=== PATIENT | male | born 1960 | race Caucasian/White ===

== ENCOUNTER 2017-02-17 10:46 | Inpatient (IN) | payer OTHER ==
[~2017-02-17] VITALS: Ht 180.3 cm; Wt 88.8 kg
--- NOTE | ~2017-02-17 | OR ---
Unit #: [id number] #: [id number] Patient: PAYAM LUNA [id number] [address] [place], [place] [address] [id number] MR#: [id number] NAME: PAYAM LUNA. ROOM: Replaced by [facility] Date of Procedure: 02/18/2017 Admission Date: 02/17/2017 Surgeon: Bin Fields M.D. : 1960 Attending Physician: Louann Torres M.D. Primary Care Physician: Jesus Caal M.D. OPERATIVE REPORT PROCEDURES PERFORMED Esophagogastroduodenoscopy with biopsy, esophagogastroduodenoscopy with variceal banding, and colonoscopy to cecum. INDICATIONS FOR PROCEDURE The patient presented with significant blood in the stool, anemia of acute blood loss, history of liver cirrhosis, undergoing evaluation with upper endoscopy and colonoscopy. MEDICATIONS Monitored anesthesia. POSTOPERATIVE FINDINGS 1. Grade 3 esophageal varices. Five bands were placed. 2. Diffuse gastropathy. Biopsies were taken in the antrum. 3. Early gastric varices. 4. Normal colonic mucosa, but for mucosal swelling. 5. Very large rectal varices most likely the cause of bleeding in this case. PLAN We will consider TIPS procedure to decrease the risk of future bleeding. We will continue with Sandostatin for now. DESCRIPTION OF PROCEDURE The patient was explained of the procedure, risks, and benefits along with the risks and benefits of anesthesia. He was brought to the endoscopy room. Propofol anesthesia was given. Bite block was placed. The scope was passed down the mouth into esophagus, stomach, duodenum, and distal duodenum. Findings as described. Biopsies were taken in the antrum. Five bands were placed also in the esophagus. Gently, the scope was pulled out. He tolerated it well. At this time, we turned him around and repositioned for colonoscopy. Large internal hemorrhoids were noted. The scope was lubricated passed up the rectum, advanced under direct vision all the way to the cecum. Cecum was identified by ileocecal valve and appendiceal orifice. I then started to pull the scope out carefully looking. No polyps or masses seen. Mucosa shows lot of edema. I retroflexed in the rectum, very large internal hemorrhoids and rectal varices noted. Gently, the scope was pulled out. He tolerated it well. No major complications were seen. Unit #: [id number] #: [id number] Patient: PAYAM LUNA Dictated by... Zoltan Garner/mike TD: 02/18/2017 15:57 JOB #: [id number] OPERATIVE REPORT Page 1 of 1 X Bin Fields MD PROCEDURE OPERATIVE NOTE
--- NOTE | ~2017-02-17 | CT2 ---
[facility] A Service of [facility] RADIOLOGY TEXT RESULTS PATIENT: PAYAM LUNA LOCATION: [facility] : 56 UNIT #: [id number] AGE: [address]: Diaz Pina MD SEX: M ORDER DR: [id number] [facility] [address] [place], [place] [address] [id number] MR#: [id number] Acc #: [id number] NAME: PAYAM LUNA : 1960 SEX: M STUDY DATE/TIME: 02/17/2017 12:34 UNIT: [facility] ROOM: STUDY DESCRIPTION: CT Abd and Pelv W Cont Attending Physician: Diaz Pina M.D. Ordering Physician: Diaz Pina M.D. Primary Care Physician: Jesus Caal M.D. MEDICAL IMAGING REPORT This report is preliminary unless electronic signature is present EXAM CT abdomen and pelvis with contrast 02/17/2017 1234 hours HISTORY 56-year-old man with right lower quadrant pain with blood in stools for 2-[address] abdomen 07/18/[address] images were obtained from the lung bases through the pubic symphysis with intravenous contrast. Sagittal and coronal reconstructions were performed. Contrast was Isovue-370 100 mL IV. Total exam DLP 684 mGy-cm. This CT exam was performed with one or more of the following radiation dose reduction techniques: automatic control, adjustment of mA and/or kV according to patient size, and iterative reconstruction. FINDINGS Images through the lung bases demonstrate minimal dependent linear density consistent with scar unchanged. There is no pleural effusion. There is slight thickening of the wall of the distal esophagus at the GE junction. No enhancement is seen. Varices, however, are suspected given the degree of collateral vessels seen elsewhere in the upper abdomen. There is a cirrhotic morphology to the liver without focal liver lesions seen. There is splenomegaly increased from prior study with numerous collateral vessels in the upper abdomen and ascites. Collateral vessels and ascites are clearly increased since 07/18/2015. The spleen currently measures 18.0 x 12.9 x 18.0 cm. It previously measured 17.2 x 12.1 x 17.6 cm. [facility] A Service of [facility] RADIOLOGY TEXT RESULTS PATIENT: PAYAM LUNA LOCATION: [facility] : 56 UNIT #: [id number] AGE: [address]: Diaz Pina MD SEX: M ORDER DR: There are clips consistent with cholecystectomy. No acute pancreatic lesion is seen. There is no bile duct dilatation. The adrenal glands are normal. Collateral vessels are seen extending anterior and inferior to the spleen towards the left upper quadrant towards the pericolic gutter and descending lateral and medial to the kidney. There is a splenorenal shunt. Stomach is contracted and unopacified but appears normal. There is no small bowel distension or small bowel wall thickening. I see no evidence of appendicitis. The colon is nondistended. No definite wall thickening is seen. The wall in the sigmoid colon appears mildly prominent, however it is surrounded by ascites which can yield the appearance of a thickened wall. Given the history of bleeding consider a follow up colonoscopy if not recently performed. There are serpiginous enhancing vessels to the left and anterior to the upper rectum with vessels appearing to enhance in the wall of the rectum (image 98 series 2. This is possibly the source of the patient's bleeding. IMPRESSION 1. Cirrhotic morphology to the liver with interval progression of portal hypertension with increasing splenomegaly and increasing ascites. Numerous collateral vessels are seen around the spleen, the gastrohepatic ligament and likely varices at the distal esophagus. 2. No focal liver lesion. The gallbladder is absent. 3. No renal or adrenal lesion. 4. There is a segment of sigmoid colon where wall thickening cannot be excluded. This loop is surrounded by ascitic fluid which can often give the appearance of wall thickening. Suggest correlation with colonoscopy if not recently performed. 5. CT pelvis demonstrates multiple serpiginous enhancing vessels around the rectum with enhancing area in the anterolateral right rectal wall measuring up to 3 cm. This could be related to the presence of varices. A tumor mass could have this appearance as well. Given this proximity to the anus this is perhaps palpable. Suggest further evaluation with direct visualization. STAT * RESULT Dictated by... Bernarda Gutierrez M.D. THIS IS AN ELECTRONICALLY VERIFIED REPORT Bernarda Gutierrez M.D. at 02/17/2017 2:30 PM SMM/rnr TD: 02/17/2017 13:06 [facility] [email or web address]]. [facility] A Service of [facility] RADIOLOGY TEXT RESULTS PATIENT: PAYAM LUNA [id number] : 56 UNIT #: [id number] AGE: [address]: Diaz Pina MD SEX: M ORDER DR: JOB #: [id number] MEDICAL IMAGING REPORT Page 1 of 1 COPY
--- NOTE | ~2017-02-17 | DS ---
Unit #: [id number] #: [id number] Patient: PAYAM LUNA [id number] [address] [place], [place] [address] [id number] MR#: [id number] NAME: PAYAM LUNA ROOM: [facility] Age: 56 Sex: M Admission Date: 02/17/2017 : 1960 Discharge Date: 02/19/2017 Attending Physician: Louann Torres M.D. Primary Care Physician: Jesus Caal M.D. DISCHARGE SUMMARY PERTINENT HISTORY/HOSPITAL COURSE The patient is a 56-year-old man with a history significant for insulin dependent diabetes mellitus, portal hypertension and cirrhosis, who presents with symptoms of rectal bleeding. During his admission, the patient had a gastroenterology consultation and underwent esophagogastroduodenoscopy with biopsy and with variceal banding along with a colonoscopy up to the cecum. The patient had grade 3 esophageal varices and five bands were placed. Diffuse gastropathy and biopsies were taken in the antrum. Normal colonic mucosa. Large rectal varices. Following this, the patient had no further rectal bleeding. His hemoglobin was stable, his vitals were stable. The patient will be discharged home today. TIPS procedure is not available at this facility. Plan will be for the patient to follow up with gastroenterology with outpatient TIPS procedure at another facility. DISCHARGE MEDICATIONS 1. Lantus insulin 34 units subcu at bedtime. 2. Aspart insulin 10 units subcu before meals. 3. Protonix 40 mg p.o. once daily. DISCHARGE INSTRUCTIONS The patient is to follow up with gastroenterology as outpatient and consideration for outpatient TIPS procedure if necessary. Follow up with primary care physician. Dictated by... Zoltan Estrella TD: 02/19/2017 12:56 JOB #: [id number] Unit #: [id number] #: [id number] Patient: PAYAM LUNA DISCHARGE SUMMARY Page 1 of 1 X X DISCHARGE SUMMARY
--- NOTE | ~2017-02-17 | HP ---
Unit #: [id number] #: [id number] Patient: PAYAM LUNA [id number] [address] [facility], [place] [address] [id number] MR#: [id number] NAME: PAYAM LUNA ROOM: 334 Age: 56 Sex: M Admission Date: 02/17/2017 : 1960 Attending Physician: Regan Torres M.D. Primary Care Physician: Jesus Caal M.D. HISTORY AND PHYSICAL CHIEF COMPLAINT Rectal bleeding. HISTORY OF PRESENT ILLNESS The patient is a 56-year-old male, who has history of diabetes and hypertension, and portal hypertension, brought to the emergency room complaining of rectal bleeding. The patient stated that the rectal bleeding has been going on for the last two months and has been gradually worsening to the point that this morning the patient was noted the pouring of the blood with the clotted blood and that made him to come to the emergency room. The patient was seen by the primary care physician and then later to the emergency room for the above evaluation. The patient stated that he had an upper endoscopy back in 2013 with history of variceal banding for the esophageal varices. The patient also complains of dizziness and headache but denies any chest pain. He denies any nausea or vomiting. The patient is being admitted for the above reasons. PAST MEDICAL HISTORY 1. History of portal hypertension. 2. Esophageal varices. 3. Insulin dependent diabetes. 4. Hypertension. 5. Anemia. PAST SURGICAL HISTORY 1. Cholecystectomy. 2. Colonoscopy. 3. In the past rectal varices were noted. ALLERGIES None. HOME MEDICATIONS NovoLog and Levemir FAMILY HISTORY Coronary artery disease and kidney disease. SOCIAL HISTORY The patient lives with his . He is a lifelong nonsmoker. He states that he never drank alcohol heavily in the past and does not drink any alcohol currently. REVIEW OF SYSTEMS Unit #: [id number] #: [id number] Patient: PAYAM LUNA Positive for headache, positive for dizziness, positive for rectal bleeding, and denies any chest pain, denies any shortness of breath, denies any cough, and other systems have been reviewed and all other systems are negative. PHYSICAL EXAMINATION GENERAL: The patient is lying on the bed, not in acute distress. VITALS: Temperature 97.8, pulse rate 92, respiratory 16, and blood pressure 131/71, saturation is 98% at room air. HEENT: Head: Atraumatic and normocephalic. Pupils equal, round, reactive to light and accommodation. Positive for pallor. No atelectasis. Moist mucous membranes. LUNGS: Decreased air entry at the bases. HEART: Regular rate and rhythm. ABDOMEN: Soft, positive bowel sounds. EXTREMITIES: No cyanosis, no clubbing. NEURO: Alert, awake, oriented, no gross focal motor deficit. DIAGNOSTIC STUDIES LABORATORY DATA: Sodium 135, potassium 3.6, chloride 105, bicarb 25, glucose 273, BUN 11, creatinine 0.5, AST 38, ALT 29, alkaline phosphatase 128. Total bili 2.2, albumin 3, INR is 1.2. WBC 4.8, hemoglobin 10.4, hematocrit 30.5, platelets 52. Neutrophils 76%, lymphocytes 12%. IMAGING: CT of the abdomen and pelvis with contrast, shows cirrhotic morphology to the liver with interval progression of portal hypertension with increase in splenomegaly and increase in the fatty spleen, numerous collateral vessels are seen around the spleen that are gastrohepatic ligament and likely varices at the distal esophagus. No focal liver lesions. No renal or adrenal lesions. There is a segment of sigmoid colon where the wall thickening cannot be excluded. CT of the pelvic demonstrated multiple serpiginous enhancement which was around the rectum with enhancing area in the anterior lateral right rectal wall measuring up to 3 cm. This could be related to the presence of varices and glucose is 301. ASSESSMENT/PLAN 1. Rectal bleeding. 2. Diabetes. 3. Anemia. Plan to admit to observation. The patient will have a GI evaluation and continue with the Protonix and continue with the low dose sliding scale, Accu-Cheks and further recommendations to follow as more lab evaluations are available. Dictated by Zoltan Casey TD: 02/18/2017 08:37 JOB #: [id number] Unit #: [id number] #: [id number] Patient: PAYAM LUNA HISTORY AND PHYSICAL Page 1 of 1 X REGAN TORRES MD X HISTORY AND PHYSICAL
[~2017-02-17 10:46] MED LIST: CHRONULAC10 GM/15 M PO; INDERAL20 MG PO; IRON325 ( 651 PO; LANTUS100 U/M1 SQ; LANTUS100 U/ML; LANTUS100 UNITS/ SUBQ; NADOLOL20 MG PO; NORVASC; NOVOLIN R100 U/ML; NOVOLOG FL100 UNIT/1 SQ; NOVOLOG100 U/ML SUBQ; ROXICODONE5 M1 PO; VITAMIN D2000 UNIT PO
[2017-02-17 11:28] LABS: BASOPHIL% 0.6 % (0-2.5); EOSINOPHIL# 0.1 X10e3 (0-0.7); EOSINOPHIL% 2.7 % (0.0-7.0); HEMATOCRIT 30.5 % (38.0-50.0); HEMOGLOBIN 10.4 gm/dL (13.0-16.0); LYMPHOCYTE# 0.6 X10e3 (1.0-3.5); LYMPHOCYTE% 11.5 % (17.0-45.0); MEAN CELL VOLUME 87.8 FL (83-96); MEAN CORPUSCULAR HEMOGLOBIN 29.9 PG (28-34); MEAN CORPUSCULAR HGB CONC 34.1 g/dL (30-36); MEAN PLATELET VOLUME 9.5 FL (6.5-11.5); MONOCYTE# 0.5 X10e3 (0-1.0); MONOCYTE% 10.9 % (3.0-12.0); NEUTROPHIL# 3.6 X10e3 (1.5-7.1); NEUTROPHIL% 74.3 % (40-75); RED BLOOD COUNT 3.48 X10e (3.90-5.60); RED CELL DISTRIBUTION WIDTH 16.9 % (11.0-15.5); WHITE BLOOD COUNT 4.8 X10e3 (4.0-10.5)
[2017-02-17 11:45] LABS: BILIRUBIN, DIRECT 0.5 mg/dL (0.0-0.2); BILIRUBIN,INDIRECT 1.7 mg/dL (0.0-0.9); BILIRUBIN,TOTAL 2.2 mg/dL (0.2-2.0); CALCIUM SERUM 8.1 mg/dL (8.4-10.2); CREATININE SERUM 0.5 mg/dL (0.6-1.4); GLOM FILT RATE Estimated 119.5 mL/min (>60); POTASSIUM 3.6 mmol/L (3.5-5.1); PROTEIN TOTAL SERUM 6.7 g/dL (6.0-8.3)
[2017-02-17 11:46] LABS: INR 1.2; PROTHROMBIN TIME (PATIENT) 12.6 SECONDS (10.0-11.7)
[2017-02-17 11:50] LABS: DIFF IND YES
[2017-02-17 11:51] LABS: PLATELET COUNT 52 X10e3 (140-420)
[2017-02-17 12:01] LABS: ANISOCYTOSIS SL; MICROCYTOSIS SL; PLATELET ESTIMATE DECREASED (NORMAL)
[2017-02-17] MEDS ORDERED: LANTUS100 U/ML SUBQ (13:21)
[2017-02-17] MEDS ORDERED: NOVOLOG100 U/ML SUBQ (13:22)
[2017-02-18 05:18] LABS: HEMATOCRIT 30.6 % (38.0-50.0); HEMOGLOBIN 10.4 gm/dL (13.0-16.0); MEAN CELL VOLUME 87.7 FL (83-96); MEAN CORPUSCULAR HEMOGLOBIN 29.9 PG (28-34); MEAN CORPUSCULAR HGB CONC 34.1 g/dL (30-36); MEAN PLATELET VOLUME 9.6 FL (6.5-11.5); RED BLOOD COUNT 3.49 X10e (3.90-5.60); RED CELL DISTRIBUTION WIDTH 17.4 % (11.0-15.5); WHITE BLOOD COUNT 3.7 X10e3 (4.0-10.5)
[2017-02-18 06:29] LABS: BILIRUBIN,TOTAL 1.7 mg/dL (0.2-2.0); CALCIUM SERUM 8.1 mg/dL (8.4-10.2); CREATININE SERUM 0.5 mg/dL (0.6-1.4); GLOM FILT RATE Estimated 119.5 mL/min (>60); POTASSIUM 4.1 mmol/L (3.5-5.1); PROTEIN TOTAL SERUM 6.6 g/dL (6.0-8.3)
[2017-02-19] MEDS ORDERED: PROTONIX PO (12:43)
== END 2017-02-19 13:22 | disposition home or self-care (01) | DRG 378 ==
LOC: CED 10:46 → CEDOF 14:07 → C3A PCU 14:07 → CED 15:05 → CEDOF 15:05 → C3A PCU 15:53 → CEDOF 15:53 → C3A PCU 15:53
PROVIDERS: Emergency Medicine; Internal Medicine
PROC: 0DB78ZX Excision of Stomach, Pylorus, Via Natural or Artificial Opening Endoscopic, Diagnostic (ICD-10-PCS; principal; 2017-02-18 10:25)
PROC: 06L34CZ Occlusion of Esophageal Vein with Extraluminal Device, Percutaneous Endoscopic Approach (ICD-10-PCS; 2017-02-18 10:25)
PROC: 0DJD8ZZ Inspection of Lower Intestinal Tract, Via Natural or Artificial Opening Endoscopic (ICD-10-PCS; 2017-02-18 10:25)
DX: K62.5 Hemorrhage of anus and rectum (principal); K76.6 Portal hypertension; I85.10 Secondary esophageal varices without bleeding; E11.9 Type 2 diabetes mellitus without complications; I10 Essential (primary) hypertension; D64.9 Anemia, unspecified; I86.8 Varicose veins of other specified sites; Z90.49 Acquired absence of other specified parts of digestive tract; Z79.4 Long term (current) use of insulin; Z82.49 Family history of ischemic heart disease and other diseases of the circulatory system; I86.4 Gastric varices; K64.8 Other hemorrhoids; K74.60 Unspecified cirrhosis of liver; K31.89 Other diseases of stomach and duodenum
CPT/HCPCS: 36415; 74177; 80048; 80053; 80076; 82105; 82140; 82947; 85025; 85027; 85610; 85730; 86850; 86900; 86901; 88305; 88312; 96374; 96375; 99285; C9113; J1815; J2250; J2270; J2354; J2405; Q9967